=== PATIENT | male | born 1980 | race Caucasian/White ===

== ENCOUNTER 2018-06-22 11:02 | Emergency (ER) | payer OTHER ==
[2018-06-22 11:06] VITALS: BP 151/89; PULSE 84; TEMP 99.5; BMI 23.6
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
== END 2018-06-22 12:20 | disposition home or self-care (01) ==
LOC: FER 11:02
CPT/HCPCS: 72050-TC-FY; 99281-25